=== PATIENT | female | born 1995 | race Caucasian/White ===

== ENCOUNTER 2023-04-13 09:00 | Emergency (ER) | payer OTHER ==
[2023-04-13 09:13] VITALS: BP 117/87; PULSE 71; RESP 18; TEMP 98.4; BMI 29.9
[2023-04-13] MEDS ORDERED: SODIUM CHLORIDE 1,000 ML IV STA (09:32)
[2023-04-13] MEDS ORDERED: ACETAMINOPHEN 1000 MG/100 ML BAG IVPB ONE (09:32)
[2023-04-13] MEDS ORDERED: ONDANSETRON 4 MG/2 ML VIAL IVPUSH ONE (09:35)
[2023-04-13] MEDS ORDERED: ACETAMINOPHEN INJECTION 100 ML IVPB ONE (09:41)
[2023-04-13] MEDS ORDERED: ONDANSETRON 4 MG/2 ML VIAL ONE (09:41)
[2023-04-13 10:18] LABS: BASO % 0.4 % (0-2.0); EOS % 2.2 % (0-4.5); HEMATOCRIT 38.6 % (32.4-45.2); HEMOGLOBIN 13.3 GM/dL (10.7-15.3); LYMPH % 24.7 % (8-40); MCH 32.5 pg (25.7-33.7); MCHC 34.4 g/dl (32.0-36.0); MEAN CELL VOLUME 94.4 fl (80-96); MEAN PLT VOLUME 7.8 fl (7.5-11.1); MONO % 6.5 % (3.8-10.2); NEUT % 66.2 % (42.8-82.8); PLATELET COUNT 260 10^3/uL (134-434); RBC 4.09 M/mm3 (3.60-5.2); RDW 12.8 % (11.6-15.6); WHITE BLOOD COUNT 7.2 K/mm3 (4.0-10.0)
[2023-04-13 10:19] LABS: INR 1.02 (0.83-1.09); PROTHROMBIN TIME (PATIENT) 11.8 SEC (9.7-13.0)
[2023-04-13 10:21] LABS: ACTIVATED PTT 33.5 SECONDS (25.2-36.5)
[2023-04-13 10:27] LABS: CALCIUM 9.2 mg/dL (8.5-10.1)
[2023-04-13 10:28] LABS: ALBUMIN 3.8 g/dl (3.4-5.0); BLOOD UREA NITROGEN 8.8 mg/dL (7-18)
[2023-04-13 10:31] LABS: CREATININE 0.7 mg/dL (0.55-1.3)
[2023-04-13 10:32] LABS: BILIRUBIN,TOTAL 0.4 mg/dL (0.2-1); TOT PROT 6.8 g/dl (6.4-8.2)
[2023-04-13 10:59] LABS: URINE APPEARANCE CLEAR; URINE BILIRUBIN NEGATIVE (NEGATIVE); URINE COLOR YELLOW; URINE GLUCOSE (UA) NEGATIVE (NEGATIVE); URINE KETONE NEGATIVE (NEGATIVE); URINE LEUK ESTERASE NEGATIVE (NEGATIVE); URINE NITRITE NEGATIVE (NEGATIVE); URINE PROTEIN NEGATIVE (NEGATIVE); URINE UROBILINOGEN 0.2 mg/dL (0.2-1.0)
[2023-04-13 11:01] LABS: HCG,QUALITATIVE URINE Negative
== END 2023-04-13 14:05 | disposition home or self-care (01) ==
LOC: JER 09:00
PROC: 3E033NZ Introduction of Analgesics, Hypnotics, Sedatives into Peripheral Vein, Percutaneous Approach (ICD-10-PCS; principal; 2023-04-13)
PROC: 3E033GC Introduction of Other Therapeutic Substance into Peripheral Vein, Percutaneous Approach (ICD-10-PCS; 2023-04-13)
PROC: 3E0337Z Introduction of Electrolytic and Water Balance Substance into Peripheral Vein, Percutaneous Approach (ICD-10-PCS; 2023-04-13)
DX: R10.9 Unspecified abdominal pain (principal); R11.0 Nausea; N20.0 Calculus of kidney; N83.201 Unspecified ovarian cyst, right side
CPT/HCPCS: 36415; 74176-TC; 76830-TC; 80053; 81003; 83690; 84703; 85025; 85610; 85730; 87086; 99285-25

== ENCOUNTER 2024-03-29 09:31 | Emergency (ER) | payer OTHER ==
[2024-03-29 09:51] VITALS: BP 114/81; PULSE 67; RESP 18; TEMP 98.7; BMI 31.9
[2024-03-29] MEDS ORDERED: IBUPROFEN 600 MG TABLET (FP) PO ONE (10:03)
[2024-03-29] MEDS: IBUPROFEN 600 MG TABLET (FP) PO ONE (10:12)
== END 2024-03-29 11:22 | disposition home or self-care (01) ==
LOC: JER 09:31 → JERFT 09:31
PROC: 0XQQXZZ Repair Right Middle Finger, External Approach (ICD-10-PCS; principal; 2024-03-29)
DX: S61.212A Laceration without foreign body of right middle finger without damage to nail, initial encounter (principal); W25.XXXA Contact with sharp glass, initial encounter
CPT/HCPCS: 73130-TC-RT-FY; 99283-25

== ENCOUNTER 2024-04-10 08:22 | Emergency (ER) | payer OTHER ==
[2024-04-10 08:29] VITALS: BP 118/74; PULSE 78; RESP 20; TEMP 98.4; BMI 34.0
== END 2024-04-10 09:16 | disposition home or self-care (01) ==
LOC: JERFT 08:22
DX: Z48.02 Encounter for removal of sutures (principal)
CPT/HCPCS: 99285-25